=== PATIENT | male | born 1985 | race Asian ===

== ENCOUNTER 2024-05-12 22:56 | Emergency (ER) | payer BC ==
[2024-05-12 23:02] VITALS: RESP 18; BMI 34.2
[2024-05-13 00:53] VITALS: BP 132/84; PULSE 81; TEMP 97.9
[2024-05-13] MEDS ORDERED: ACETAMINOPHEN 325 MG TABLET (FP) ONE (00:57)
[2024-05-13] MEDS ORDERED: FAMOTIDINE 20 MG TABLET ONE (00:57)
[2024-05-13] MEDS ORDERED: ONDANSETRON *ODT* 4 MG TABLET ONE (00:58)
[2024-05-13] MEDS ORDERED: MAG HYDROX/AL HYDROX/SIMETH 30 ML UNIT-DOSE CUP ONE (00:58)
[2024-05-13] MEDS: ONDANSETRON *ODT* 4 MG TABLET SL ONE (01:02)
[2024-05-13] MEDS: MAG HYDROX/AL HYDROX/SIMETH 30 ML UNIT-DOSE CUP PO ONE (01:02)
[2024-05-13] MEDS: FAMOTIDINE 20 MG TABLET PO ONE (01:02)
[2024-05-13] MEDS: ACETAMINOPHEN 500 MG TABLET (FP) PO ONE (01:02)
[2024-05-13 01:08] LABS: BASO % 0.6 % (0-2.0); EOS % 2.1 % (0-4.5); HEMATOCRIT 45.4 % (35.4-49); HEMOGLOBIN 14.9 GM/dL (11.7-16.9); MCH 27.3 pg (25.7-33.7); MCHC 32.9 g/dl (32.0-35.9); MEAN PLT VOLUME 10.5 fl (7.5-11.1); MONO % 10.7 % (3.8-10.2); NEUT % 46.6 % (42.8-82.8); PLATELET COUNT 128 10^3/uL (134-434); RBC 5.47 M/mm3 (4.00-5.60); RDW 14.6 % (11.9-15.9); WHITE BLOOD COUNT 4.7 K/mm3 (4.0-10.0)
[2024-05-13 01:19] LABS: INR 0.9 (0.83-1.09); PROTHROMBIN TIME (PATIENT) 10.4 SEC (9.7-13.0)
[2024-05-13 01:22] LABS: ACTIVATED PTT 31.7 SECONDS (25.2-36.5)
[2024-05-13 01:29] LABS: BLOOD UREA NITROGEN 18.4 mg/dL (7-18); CALCIUM 9.2 mg/dL (8.5-10.1); MAGNESIUM 1.8 mg/dL (1.8-2.4)
[2024-05-13 01:30] LABS: CREATININE 0.8 mg/dL (0.55-1.3)
[2024-05-13 01:31] LABS: BILIRUBIN,TOTAL 0.4 mg/dL (0.2-1); TOT PROT 6.8 g/dl (6.4-8.2)
[2024-05-13 02:29] LABS: EPI CELLS 1 /uL (0-25.1); HYALINE CASTS 0 /uL (0-3.1); PH,URINE 5.5 (5.0-8.0); URINE APPEARANCE CLEAR; URINE BACTERIA 1 /uL (0-1359); URINE BILIRUBIN NEGATIVE (NEGATIVE); URINE COLOR YELLOW; URINE GLUCOSE (UA) NEGATIVE (NEGATIVE); URINE KETONE 2+ (NEGATIVE); URINE LEUK ESTERASE NEGATIVE (NEGATIVE); URINE NITRITE NEGATIVE (NEGATIVE); URINE PROTEIN NEGATIVE (NEGATIVE); URINE RBC 3 /uL (0-23.9); URINE UROBILINOGEN 0.2 mg/dL (0.2-1.0); URINE WBC 0 /uL (0-25.8)
[2024-05-13] MEDS ORDERED: MAGNESIUM CITRATE 300 ML BOTTLE ONE (04:23)
[2024-05-13] MEDS: MINERAL OIL ENEMA 133 ML ENEMA RC ONE (04:27)
[2024-05-13] MEDS: MAGNESIUM CITRATE 300 ML BOTTLE PO ONE (04:27)
== END 2024-05-13 04:34 | disposition home or self-care (01) ==
LOC: JER 22:56
DX: R10.11 Right upper quadrant pain (principal); K59.00 Constipation, unspecified
CPT/HCPCS: 36415; 74177-TC; 76705-TC; 80053; 81003; 83605; 83690; 83735; 85025; 85610; 85730; 86850; 86900; 86901; 87086; 99285-25; Q0162; Q9967